=== PATIENT | male | born 1965 | race Caucasian/White ===

== ENCOUNTER 2020-07-19 09:02 | Emergency (ER) | payer OTHER ==
[2020-07-19 09:08] VITALS: BP 140/94; PULSE 68; RESP 18; TEMP 97.6
--- NOTE | 2020-07-19 09:37 | ED ---
General Adult HPI - General Chief complaint: Extremity Injury, Upper Stated complaint: rt arm injury Time Seen by Provider: 07/19/20 09:13 Source: patient, RN notes reviewed Mode of arrival: ambulatory Limitations: no limitations - History of Present Illness Initial comments: Patient is a pleasant 54-year-old male presenting to the emergency Department with complaints of right arm paresthesias. Patient did have an injury at work a couple of months ago. Patient states he jammed his right small fingers and hand. Patient states since that time he's had discomfort radiating up to his elbow. Discomfort does increase with movement and certain uses. 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 Patient also has some cracking of his right shoulder at times. Patient also has some left neck discomfort and arm paresthesias for months. No weakness. - Related Data Previous Rx's Medication Instructions Recorded predniSONE [Deltasone] 2 tab PO DAILY #10 tab 07/19/20 Allergies Allergy/AdvReac Type Severity Reaction Status Date / Time No Known Allergies Allergy Verified 07/19/20 09:08 Review of Systems ROS Statement: Those systems with pertinent positive or pertinent negative responses have been documented in the HPI. ROS Other: All systems not noted in ROS Statement are negative. Constitutional: Denies: fever Eyes: Denies: eye pain ENT: Denies: ear pain Respiratory: Denies: cough Cardiovascular: Denies: chest pain Endocrine: Denies: fatigue Gastrointestinal: Denies: abdominal pain Genitourinary: Denies: dysuria Musculoskeletal: Reports: as per HPI Skin: Denies: rash Neurological: Reports: paresthesias. Denies: weakness Past Medical History Past Medical History: No Reported History History of Any Multi-Drug Resistant Organisms: None Reported Additional Past Surgical History / Comment(s): polyps Past Psychological History: No Psychological Hx Reported Smoking Status: Current every day smoker Past Alcohol Use History: Occasional Past Drug Use History: None Reported General Exam Limitations: no limitations General appearance: alert, in no apparent distress Head exam: Present: normocephalic Eye exam: Present: normal appearance Neck exam: Present: normal inspection. Absent: tenderness Respiratory exam: Present: normal lung sounds bilaterally Cardiovascular Exam: Present: regular rate, normal rhythm GI/Abdominal exam: Present: soft. Absent: tenderness Extremities exam: Present: normal inspection, full ROM. Absent: tenderness Neurological exam: Present: alert. Absent: motor sensory deficit Expanded Sensory exam: Upper Extremity Light Touch: Normal Motor strength exam: RUE: 5, LUE: 5 Psychiatric exam: Present: normal affect, normal mood Course Vital Signs 07/19/20 09:03 Temperature 97.6 F Pulse Rate 68 Respiratory 18 Rate Blood Pressure 140/94 O2 Sat by Pulse 98 Oximetry Medical Decision Making - Medical Decision Making Patient has refused x-rays. Disposition Clinical Impression: Paresthesia of arm, Cervical radiculopathy Disposition: HOME SELF-CARE Condition: Stable Instructions (If sedation given, give patient instructions): Tendinitis (ED), Paresthesia (ED), Cervical Radiculopathy (ED) Additional Instructions: Please do follow-up with primary care physician and orthopedics in the next couple days for recheck. [id number] Motrin as needed. Return for weakness, worsening or changing symptoms or other concerns. Prescriptions: predniSONE [Deltasone] 2 tab PO DAILY #10 tab Is patient prescribed a controlled substance at d/c from ED?: No Referrals: Curt Ramírez MD [Primary Care Provider] - 1-2 days Kade Crenshaw DO [Doctor of Osteopathic Medicine] - 1-2 days Time of Disposition: 09:35
== END 2020-07-19 09:45 | disposition home or self-care (01) ==
LOC: EC 09:02
DX: M54.12 Radiculopathy, cervical region (principal); S49.91XA Unspecified injury of right shoulder and upper arm, initial encounter; F17.200 Nicotine dependence, unspecified, uncomplicated; W23.0XXA Caught, crushed, jammed, or pinched between moving objects, initial encounter; Y99.0 Civilian activity done for income or pay
CPT/HCPCS: 99283

== ENCOUNTER 2020-08-14 22:25 | Emergency (ER) | payer OTHER ==
[2020-08-14 22:38] VITALS: RESP 16; TEMP 97.6
[2020-08-14] MEDS ORDERED: MORPHINE SULFATE 4 MG/ML SYRINGE IVP STA (22:46)
[2020-08-14 23:19] LABS: Basophils # (A) 0.1 k/uL (0-0.2); Basophils % (A) 1 %; Eosinophils # (A) 0.5 k/uL (0-0.7); Eosinophils % (A) 4 %; HCT 38.6 % (39.0-53.0); HGB 13.7 gm/dL (13.0-17.5); Lymphocytes # (A) 3.1 k/uL (1.0-4.8); Lymphocytes % (A) 27 %; MCH 31.4 pg (25.0-35.0); MCHC 35.5 g/dL (31.0-37.0); MCV 88.5 fL (80.0-100.0); Mean Platelet Volume 6.9; Monocytes # (A) 0.6 k/uL (0-1.0); Monocytes % (A) 5 %; Neutrophils % (A) 61 %; Platelet Count 286 k/uL (150-450); RBC 4.37 m/uL (4.30-5.90); RDW 13.3 % (11.5-15.5); WBC 11.5 k/uL (3.8-10.6)
[2020-08-14 23:42] LABS: ALT 28 U/L (4-49); AST 26 U/L (17-59); African American GFR (CKD) >90 (>60 ml/min/1.73 sqM); Albumin 4.3 g/dL (3.5-5.0); Alkaline Phosphatase 85 U/L (38-126); Anion Gap 8 mmol/L; Blood Urea Nitrogen 12 mg/dL (9-20); Calcium 9.5 mg/dL (8.4-10.2); Carbon Dioxide 26 mmol/L (22-30); Chloride 105 mmol/L (98-107); Glucose 115 mg/dL (74-99); Non-African American GFR(CKD) >90 (>60 ml/min/1.73 sqM); Sodium 139 mmol/L (137-145); Total Bilirubin 0.3 mg/dL (0.2-1.3); Total Protein 6.7 g/dL (6.3-8.2)
[2020-08-15] MEDS ORDERED: KETOROLAC 15 MG/ML 1 ML VIAL IVP STA (00:16)
--- NOTE | 2020-08-15 00:18 | CT ---
EXAMINATION TYPE: CT soft tissue neck wo con DATE OF EXAM: 08/14/2020 COMPARISON: HISTORY: right side neck swelling. no injury. no prior on PACS CT DLP: 344.4 mGycm Automated exposure control for dose reduction was used. Images obtained from the frontal sinuses to the thoracic inlet without contrast. There is some mild mucosal thickening in the anterior left maxillary sinus. Maxilla is intact. Orbita l margins are intact. There is no retro-orbital mass. Nasal bone is intact. Zygomatic arches appear n ormal. Mastoid sinuses appear normal. There is bilateral enlarged parotid glands with some fatty infiltration. Right gland is larger than t he left. There are multiple nodular densities in both parotid glands and more on the right side consi stent with multiple enlarged lymph nodes. Largest lymph node measures 16 x 10 mm on the right side. T here is a 2.5 mm calculus in the mouth which is possibly in the parotid duct. There are also 2 other similar calcifications in the parotid gland. Submandibular salivary glands are symmetric. The tongue appears normal. Epiglottis is normal. The sub glottic trachea appears normal. There is 15 mm hypodensity in the left thyroid lobe. Thyroid gland is large. There is probably other smaller hypodensities. The tonsils and adenoids appear within normal limits. There are numerous anterior and posterior trian gle enlarged cervical lymph nodes on the right side. The largest posterior triangle lymph node measur es 7 x 13 mm. The largest anterior triangle lymph node on the right side measures 9 mm. There are a f ew left side cervical lymph nodes measuring up to 10 mm. There is no pathologic fluid collection. The external auditory canals appear normal. There is bilateral normal aeration of the epitympanic recess . There is no evidence of a posterior fossa mass. IMPRESSION: Enlarged parotid glands and more on the right side with multiple lymph nodes. There is also some cerv ical lymphadenopathy. This is more likely related to inflammatory process of parotitis. No evidence of an abscess. No evidence of pharyngeal mass. There are calcifications in the right paro tid gland and possibly also in the parotid duct. This could be obstructing. There is large thyroid gland probably a multinodular goiter.
[2020-08-15] MEDS ORDERED: KETOROLAC 15 MG/ML 1 ML VIAL ONE (00:20)
--- NOTE | 2020-08-15 00:46 | ED ---
ENT HPI - General Chief complaint: ENT Stated complaint: Face swelling Time Seen by Provider: 08/14/20 22:40 Source: patient, RN notes reviewed Mode of arrival: ambulatory Limitations: no limitations - History of Present Illness Initial comments: Patient is a 55-year-old male is complaining of right-sided facial swelling. He notes he was recently seen at [facility] where he was diagnosed with acute sialoadenitis. He notes that the pain is increased over the last day or 2 with increased swelling. He did appear to be in mild discomfort while sitting up in bed during exam and interview. He noted that he wanted pain control with anything at this time. He denied any chest pain short of breath headache nausea vomiting diarrhea constipation fever fatigue chills. - Related Data Previous Rx's Medication Instructions Recorded predniSONE [Deltasone] 2 tab PO DAILY #10 tab 07/19/20 Clindamycin HCl 300 mg PO Q6HR #40 cap 08/15/20 HYDROcodone/APAP 7.5-325MG [[place] 1 tab PO Q4H PRN 3 Days #18 tab 08/15/20 7.5-325] Allergies Allergy/AdvReac Type Severity Reaction Status Date / Time milk Allergy Unknown Verified 08/14/20 22:38 Penicillins Allergy Unknown Verified 08/14/20 22:39 Review of Systems ROS Statement: Those systems with pertinent positive or pertinent negative responses have been documented in the HPI. ROS Other: All systems not noted in ROS Statement are negative. Past Medical History Past Medical History: No Reported History History of Any Multi-Drug Resistant Organisms: None Reported Additional Past Surgical History / Comment(s): polyps Past Psychological History: No Psychological Hx Reported Smoking Status: Current every day smoker Past Alcohol Use History: Occasional Past Drug Use History: None Reported General Exam Limitations: no limitations General appearance: alert, in no apparent distress Head exam: Present: atraumatic, normal inspection. Absent: normocephalic (Right-sided swelling along the angle of mandible extending superiorly towards the ear.) Eye exam: Present: normal appearance, PERRL, EOMI. Absent: scleral icterus, conjunctival injection, periorbital swelling Neck exam: Present: normal inspection Respiratory exam: Present: normal lung sounds bilaterally. Absent: respiratory distress, wheezes, rales, rhonchi, stridor Cardiovascular Exam: Present: regular rate, normal rhythm, normal heart sounds. Absent: systolic murmur, diastolic murmur, rubs, gallop, clicks Extremities exam: Present: normal inspection, full ROM, normal capillary refill. Absent: tenderness, pedal edema, joint swelling, calf tenderness Neurological exam: Present: alert, oriented X3 Psychiatric exam: Present: normal affect, normal mood Skin exam: Present: warm, dry, intact, normal color. Absent: rash Course Vital Signs 08/14/20 22:33 Temperature 97.6 F Pulse Rate 79 Respiratory 16 Rate Blood Pressure 154/93 O2 Sat by Pulse 96 Oximetry Medical Decision Making - Medical Decision Making 55-year-old male complaining of right-sided facial pain after being diagnosed with acute sialoadenitis. Labs, CT of the soft tissue neck, 4 mg morphine, 50 mg of Toradol ordered. Labs unremarkable. CT shows bilateral swollen parotid glands most likely inflammatory. Case discussed with Dr. Devries, patient discharge home on antibiotic therapies follow-up to ENT specialist. - Lab Data Result diagrams: 08/14/20 23:05 08/14/20 23:05 Lab Results 08/14/20 08/14/20 Range/Units 23:05 23:05 WBC 11.5 H (3.8-10.6) k/uL RBC 4.37 (4.30-5.90) m/uL Hgb 13.7 (13.0-17.5) gm/dL Hct 38.6 L (39.0-53.0) % MCV 88.5 (80.0-100.0) fL MCH 31.4 (25.0-35.0) pg MCHC 35.5 (31.0-37.0) g/dL RDW 13.3 (11.5-15.5) % Plt Count 286 (150-450) k/uL MPV 6.9 Neutrophils % 61 % Lymphocytes % 27 % Monocytes % 5 % Eosinophils % 4 % Basophils % 1 % Neutrophils # 7.0 (1.3-7.7) k/uL Lymphocytes # 3.1 (1.0-4.8) k/uL Monocytes # 0.6 (0-1.0) k/uL Eosinophils # 0.5 (0-0.7) k/uL Basophils # 0.1 (0-0.2) k/uL Sodium 139 (137-145) mmol/L Potassium 4.0 (3.5-5.1) mmol/L Chloride 105 (98-107) mmol/L Carbon Dioxide 26 (22-30) mmol/L Anion Gap 8 mmol/L BUN 12 (9-20) mg/dL Creatinine 0.65 L (0.66-1.25) mg/dL Est GFR (CKD-EPI)AfAm >90 (>60 ml/min/1.73 sqM) Est GFR (CKD-EPI)NonAf >90 (>60 ml/min/1.73 sqM) Glucose 115 H (74-99) mg/dL Calcium 9.5 (8.4-10.2) mg/dL Total Bilirubin 0.3 (0.2-1.3) mg/dL AST 26 (17-59) U/L ALT 28 (4-49) U/L Alkaline Phosphatase 85 (38-126) U/L Total Protein 6.7 (6.3-8.2) g/dL Albumin 4.3 (3.5-5.0) g/dL - Radiology Data Radiology results: report reviewed, image reviewed Enlarged parotid glands and more on the right side with multiple lymph nodes. There is also some cervical lymphadenopathy. There is more likely related to in flammatory process of prostatitis. No evidence of an abscess. No evidence of pharyngeal mass. There are calcifications the) A possibility also the parotid duct this could be obstructing. There is large thyroid gland probably a multinodular goiter. Disposition Clinical Impression: Parotitis, acute Disposition: HOME SELF-CARE Condition: Stable Instructions (If sedation given, give patient instructions): Sialoadenitis (ED) Additional Instructions: Please return to the Emergency Department if symptoms worsen or any other concerns. Take pain medication as prescribed. Follow-up with ENT specialist next several days. Is patient prescribed a controlled substance at d/c from ED?: Yes When asked, does pt state using other controlled substances?: No If prescribed controlled substance>3 days was MAPS reviewed?: Prescribed <3 Days If opioid is for acute pain is fill amount 7 days or less?: Yes Referrals: Curt Ramírez MD [Primary Care Provider] - 1-2 days Padilla Worthington MD [STAFF PHYSICIAN] - 1-2 days Time of Disposition: 00:45
[2020-08-15 01:06] VITALS: BP 146/81; PULSE 82
== END 2020-08-15 01:00 | disposition home or self-care (01) ==
LOC: EC 22:25
DX: K11.21 Acute sialoadenitis (principal); F17.200 Nicotine dependence, unspecified, uncomplicated; Z88.0 Allergy status to penicillin; Z79.52 Long term (current) use of systemic steroids
CPT/HCPCS: 36415; 80053; 85025; 70490; 96374; 96375; 99284; J2270; J1885

== ENCOUNTER 2022-02-06 19:38 | Emergency (ER) | payer OTHER ==
[2022-02-06 20:46] VITALS: TEMP 97.8
[2022-02-06] MEDS ORDERED: SODIUM CHLORIDE 0.9% 1,000 ML IV STA (20:55)
--- NOTE | 2022-02-06 20:56 | ED ---
Weakness HPI - General Chief complaint: Dizziness Stated complaint: Dizziness,Weakness Time Seen by Provider: 02/06/22 20:54 Source: patient, RN notes reviewed, old records reviewed Mode of arrival: ambulatory Limitations: no limitations - History of Present Illness Initial comments: This is a 56-year-old male presenting from work for evaluation. Patient states he feels well upon arrival in the emergency room. Patient is acting appropriately. Patient states his admits being dizzy earlier today not feeling too great. Feeling little bit off. But denies any other complaints. Patient refusing testing MD Complaint: generalized weakness Location: generalized Severity: mild Severity scale (1-10): 3 Consistency: intermittent Improves with: none Worsens with: none Context: history of similar Associated Symptoms: confusion - Related Data Home Medications Medication Instructions Recorded Confirmed Omeprazole [PriLOSEC] 20 mg PO DAILY 02/06/22 02/06/22 Allergies Allergy/AdvReac Type Severity Reaction Status Date / Time milk Allergy Unknown Verified 02/06/22 21:38 Penicillins Allergy Unknown Verified 02/06/22 21:38 Childhood Review of Systems ROS Statement: Those systems with pertinent positive or pertinent negative responses have been documented in the HPI. ROS Other: All systems not noted in ROS Statement are negative. Past Medical History Past Medical History: No Reported History History of Any Multi-Drug Resistant Organisms: None Reported Additional Past Surgical History / Comment(s): polyps Past Psychological History: No Psychological Hx Reported Smoking Status: Current every day smoker Past Alcohol Use History: Occasional Past Drug Use History: None Reported General Exam Limitations: no limitations General appearance: alert, in no apparent distress Head exam: Present: atraumatic, normocephalic, normal inspection Eye exam: Present: normal appearance, PERRL, EOMI. Absent: scleral icterus, conjunctival injection, periorbital swelling ENT exam: Present: normal exam, mucous membranes moist Neck exam: Present: normal inspection. Absent: tenderness, meningismus, lymphadenopathy Respiratory exam: Present: normal lung sounds bilaterally. Absent: respiratory distress, wheezes, rales, rhonchi, stridor Cardiovascular Exam: Present: regular rate, normal rhythm, normal heart sounds. Absent: systolic murmur, diastolic murmur, rubs, gallop, clicks GI/Abdominal exam: Present: soft, normal bowel sounds. Absent: distended, tenderness, guarding, rebound, rigid Extremities exam: Present: normal inspection, full ROM, normal capillary refill. Absent: tenderness, pedal edema, joint swelling, calf tenderness Back exam: Present: normal inspection Neurological exam: Present: alert, oriented X3, CN II-XII intact Psychiatric exam: Present: normal affect, normal mood Skin exam: Present: warm, dry, intact, normal color. Absent: rash Course Vital Signs 02/06/22 02/06/22 20:41 21:45 Temperature 97.8 F Pulse Rate 88 82 Respiratory 16 18 Rate Blood Pressure 173/105 155/78 O2 Sat by Pulse 98 99 Oximetry - Reevaluation(s) Reevaluation #1: 02/06/22 Medical record is reviewed Reevaluation #2: 02/06/22 Patient is no change in symptoms continues remained normal at baseline Reevaluation #3: 02/06/22 Patient informed results and questions have been answered Reevaluation #4: Was pt. sent in by a medical professional or institution? @ -no Did you speak to anyone other than the patient for history? @ -no Did you review nursing and triage notes? @ -agree Were old charts reviewed? @ -no Differential Diagnosis? @ -no EKG interpreted by me (3pts min.)? @ -[none] X-rays interpreted by me (1pt min.)? @ -[none] CT interpreted by me (1pt min.)? @ -[none] U/S interpreted by me (1pt. min.)? @ -no What testing was considered but not performed? (CT, X-rays, U/S, labs)? Why? @ no What meds were considered but not given? Why? @ -[none] Did you discuss the management of the patient with other professionals? @ -no Did you reconcile home meds? @ -[none] Was smoking cessation discussed for >3mins.? @ -[none] Was critical care preformed (if so, how long)? @ -[none] Were there social determinants of health that impacted care today? How? (Homelessness, low income, unemployed, alcoholism, drug addiction, transportation, low edu. Level, literacy, decrease access to med. care, fdc, rehab)? @ -no Was there de-escalation of care discussed even if they declined? (Discuss DNR or withdrawal of care, Hospice)? @ -no What co-morbidities impacted this encounter? (DM, HTN, Smoking, COPD, CAD, Cancer, CVA, Hep., AIDS, mental health diagnosis, sleep apnea, morbid obesity)? @ -no Was patient admitted / discharged? @ -dc Undiagnosed new problem with uncertain prognosis? @ -[none] Drug Therapy requiring intensive monitoring for toxicity (Heparin, Nitro, Insulin, Cardizem)? @ -[none] Were any procedures done? @ -[none] Diagnosis/symptom? @ -[default] Acute, or Chronic, or Acute on Chronic? @ -[default] Uncomplicated (without systemic symptoms) or Complicated (systemic symptoms)? @ -[default] Side effects of treatment? @ -[none] Exacerbation, Progression, or Severe Exacerbation] @ -[no] Poses a threat to life or bodily function? @ -[no] EKG Findings - EKG Comments: EKG Findings:: EKG is sinus 87. 1:30 QRS 92 QTC 393 Medical Decision Making - Medical Decision Making 56 male to the emergency department for evaluation of altered mental status upon arrival to ER patient states he feels like he is at baseline feels well feels normal would prefer discharged home Disposition Clinical Impression: Dizziness Disposition: HOME SELF-CARE Condition: Good Instructions (If sedation given, give patient instructions): Dizziness (ED) Is patient prescribed a controlled substance at d/c from ED?: No When asked, does pt state using other controlled substances?: No Referrals: Curt Ramírez MD [Primary Care Provider] - 1-2 days Time of Disposition: 22:00
[2022-02-06] MEDS ORDERED: ONDANSETRON 4 MG TAB PO STA (21:35)
[2022-02-06] MEDS ORDERED: LORazepam 1 MG TAB PO STA (21:35)
[2022-02-06 22:21] VITALS: BP 155/78; PULSE 82; RESP 18
== END 2022-02-06 22:00 | disposition home or self-care (01) ==
LOC: EC 19:38
DX: R42 Dizziness and giddiness (principal); F17.200 Nicotine dependence, unspecified, uncomplicated; Z88.0 Allergy status to penicillin; Z91.011 Allergy to milk products
CPT/HCPCS: 93005; 99284

== ENCOUNTER → 2022-06-02 | Outpatient (CLI) | payer OTHER ==
[2022-06-02 16:23] LABS: Rheumatoid Factor, Qnt <10 IU/mL (0-15)
[2022-06-03 13:43] LABS: HLA B27 NEGATIVE
== END | disposition home or self-care (01) ==
LOC: LABWHC1 10:37
PROVIDERS: ATTEND Ophthalmology
DX: N34.1 Nonspecific urethritis (principal)
CPT/HCPCS: 36415; 82164; 85549; 85652; 86038; 86431; 86618; 86812

== ENCOUNTER 2022-09-05 10:50 | Day surgery (SDC) | payer OTHER ==
[2022-08-29 14:12] VITALS: BMI 30.9
[~2022-09-05 10:50] MED LIST: LACTATED RINGERS 1,000 ML IV SCH
[2022-09-05 11:33] VITALS: TEMP 96.9
[2022-09-05] MEDS ORDERED: PROPOFOL 10 MG/ML 20 ML VIAL IV ONE (12:02)
--- NOTE | 2022-09-05 12:10 | P.GSHP ---
History of Present Illness H&P Date: 09/05/22 Chief Complaint: Colon polyps, screening 57-year-old male here for colonoscopy. Last colonoscopy he says is 3 years ago. No bowel complaints. Had colon polyps last time. Past Medical History Past Medical History: No Reported History Additional Past Medical History / Comment(s): diverticulosis, diverticulitis History of Any Multi-Drug Resistant Organisms: None Reported Additional Past Surgical History / Comment(s): polyps cysts removed from arm ,shoulder, back, teeth pulled,colonoscopy Past Anesthesia/Blood Transfusion Reactions: No Reported Reaction Additional Past Anesthesia/Blood Transfusion Reaction / Comment(s): no blood transfusion Smoking Status: Former smoker Medications and Allergies Home Medications Medication Instructions Recorded Confirmed Type Omeprazole [PriLOSEC] 20 mg PO DAILY 02/06/22 09/05/22 History Allergies Allergy/AdvReac Type Severity Reaction Status Date / Time milk Allergy Unknown Verified 09/05/22 11:25 Penicillins Allergy Unknown Verified 09/05/22 11:25 Childhood Surgical - Exam Vital Signs Temp Pulse Resp BP Pulse Ox 96.9 F L 77 18 143/79 95 09/05/22 11:16 09/05/22 11:16 09/05/22 11:16 09/05/22 11:16 09/05/22 11:16 Physical exam: General: Well-developed, well-nourished HEENT: Normocephalic, sclerae nonicteric Abdomen: Nontender, nondistended Extremities: No edema Neuro: Alert and oriented Assessment and Plan (1) Colon cancer screening Narrative/Plan: Will proceed with colonoscopy at this time. Current Visit: Yes Status: Acute Code(s): Z12.11 - ENCOUNTER FOR SCREENING FOR MALIGNANT NEOPLASM OF COLON SNOMED Code(s): 103404237
--- NOTE | 2022-09-05 12:42 | P.PCN ---
Date of Procedure: 09/05/22 Procedure(s) Performed: PREOPERATIVE DIAGNOSIS: Colon cancer screening with history of polyps POSTOPERATIVE DIAGNOSIS: Multiple colonic polyps, diverticulosis PROCEDURE: Colonoscopy with snare polypectomy ANESTHESIA: MAC SURGEON: Rolly Handley M.D. SPECIMENS: Polyps ENDOSCOPIC PROCEDURE: The patient was placed on the endoscopy table in the left decubitus position. The Olympus colonoscope was inserted into the anus and passed under direct visualization to the base of the cecum. The appendiceal orifice was visualized. From that point the scope was slowly withdrawn inspecting all surfaces carefully. There were no neoplastic inflammatory or polypoid lesions throughout the cecum and ascending colon. In the transverse colon the patient had 2 polyps removed using the snare with cautery technique. Skin the descending colon the patient also had 2 polyps removed using the snare with cautery technique. In the sigmoid colon at 35 cm there was a large polyp measuring approximately 3 cm with a long stalk. This was removed using the snare with cautery technique. Another smaller polyp was seen in the sigmoid colon distally. In the rectum a small polyp was seen and removed using the snare with cautery technique. The patient had extensive left-sided diverticulosis as well. Digital rectal examination was normal. The patient was taken to the recovery room in stable condition per anesthesia guidelines. RECOMMENDATIONS: Patient with multiple polyps one of which was fairly large. Recommend repeat colonoscopy in one year.
[2022-09-05 12:47] VITALS: BP 98/63; PULSE 59; RESP 16
== END 2022-09-05 13:25 | disposition home or self-care (01) ==
LOC: ORWHC2ENDO 10:50
PROVIDERS: ATTEND Surgery
DX: Z12.11 Encounter for screening for malignant neoplasm of colon (principal); K57.30 Diverticulosis of large intestine without perforation or abscess without bleeding; D12.4 Benign neoplasm of descending colon; K62.1 Rectal polyp; Z86.010 Personal history of colon polyps; Z87.891 Personal history of nicotine dependence; Z88.0 Allergy status to penicillin; Z79.899 Other long term (current) drug therapy
CPT/HCPCS: 88305; 45385; J2704